=== PATIENT | female | born 1980 | race Caucasian/White ===

== ENCOUNTER → 2018-04-25 | Outpatient (CLI) | payer BC ==
[~2018-04-25] MED LIST: ALBU90OI INH; AZIT250 PO; Albuterol17 G1 INH; BENZ100A PO; CARB200ER PO; CEPH500 PO; CODACE30 PO; HYDACE5 PO; IBUP800 PO; IRON TABS; MULVITMINE PO; Mobic15 MG PO; OXYACE5T PO; PRED10 PO; PSEU120ER PO; SULTRIDS PO; Zithromax250 MG PO
== END ==
LOC: LAB SHORT 15:30 → LAB 15:30
PROVIDERS: Nurse Practitioner
DX: Z01.419 Encounter for gynecological examination (general) (routine) without abnormal findings (principal)
CPT/HCPCS: G0145

== ENCOUNTER 2019-12-19 07:50 | Day surgery (SDC) | payer OTHER ==
[~2019-12-19] VITALS: Ht 193 cm; Wt 88.3 kg
[~2019-12-19 07:50] MED LIST changes: +Inderal80 MG PO
--- NOTE | 2019-12-19 11:05 | NUR ---
12/19/19 1106 YNES PANG PATIENT INTO RECLINER WITH TWO PERSON ASSIST. PATIENT VERY DROWSY. ABLE TO OPEN EYES, FOLLOW COMMANDS MINIMALLY. TOLERATING SIPS OF WATER. PATIENT DENIES PAIN AT THIS TIME, REPORTS IT IS "OK". BANDAIDS AND VENKATA PAD IN PLACE ARE CLEAN/DRY AND INTACT.
== END 2019-12-19 11:45 | disposition home or self-care (01) ==
LOC: ORSCSDS 07:50
PROVIDERS: Obstetrics & Gynecology
PROC: 0U5F4ZZ Destruction of Cul-de-sac, Percutaneous Endoscopic Approach (ICD-10-PCS; principal; 2019-12-19 09:00)
PROC: 0UT74ZZ Resection of Bilateral Fallopian Tubes, Percutaneous Endoscopic Approach (ICD-10-PCS; principal; 2019-12-19 09:00)
DX: N80.3 Endometriosis of pelvic peritoneum (principal); N73.6 Female pelvic peritoneal adhesions (postinfective); R10.2 Pelvic and perineal pain; Z87.891 Personal history of nicotine dependence; G40.909 Epilepsy, unspecified, not intractable, without status epilepticus; E66.9 Obesity, unspecified; Z68.33 Body mass index [BMI] 33.0-33.9, adult; Z79.899 Other long term (current) drug therapy
CPT/HCPCS: 88302; 88304; J0171; J1100; J1885; J2250; J2405; J2550; J2704; J2710; J3010; J7040; J7120

== ENCOUNTER → 2022-01-15 | Outpatient (CLI) | payer OTHER ==
[2022-01-19 15:07] LABS: HPV 16 Negative (Negative); HPV 18 Negative (Negative); HPV OTHER HR TYPES Negative (Negative)
== END | disposition home or self-care (01) ==
LOC: LAB 12:09 → LAB SHORT 12:09
PROVIDERS: Obstetrics & Gynecology
DX: Z12.4 Encounter for screening for malignant neoplasm of cervix (principal)
CPT/HCPCS: 87624; G0123